=== PATIENT | male | born 1985 | race Hispanic/Latino ===

== ENCOUNTER 2024-03-31 18:12 | Emergency (ER) | payer SELFPAY ==
[~2024-03-31] VITALS: Ht 154.9 cm; Wt 58.0 kg
[2024-03-31 18:39] VITALS: BP 117/68
[2024-03-31 18:45] VITALS: BP 106/71
[2024-03-31 19:00] VITALS: BP 111/77
[2024-03-31 19:15] VITALS: BP 111/73
[2024-03-31 19:30] VITALS: BP 111/77
== END 2024-03-31 19:30 | disposition home or self-care (01) | DRG 950 ==
LOC: ED 18:12
DX: S01.01XD Laceration without foreign body of scalp, subsequent encounter (principal); X58.XXXD Exposure to other specified factors, subsequent encounter

== ENCOUNTER 2024-04-07 16:18 | Emergency (ER) | payer SELFPAY ==
[~2024-04-07] VITALS: Ht 154.9 cm; Wt 72.5 kg
[2024-04-07 16:36] VITALS: BP 126/70
[2024-04-07 16:47] VITALS: BP 128/67
[2024-04-07 17:00] VITALS: BP 121/72
[2024-04-07 17:04] VITALS: BP 121/72
== END 2024-04-07 17:05 | disposition home or self-care (01) | DRG 950 ==
LOC: ED 16:18
DX: S01.01XD Laceration without foreign body of scalp, subsequent encounter (principal); X58.XXXD Exposure to other specified factors, subsequent encounter